=== PATIENT | male | born 1950 | race Asian ===

== ENCOUNTER → 2022-10-23 | Outpatient (CLI) | payer MEDICARE, OTHER ==
[~2022-10-23] VITALS: Ht 177.8 cm; Wt 98.8 kg
[2022-10-23 13:50] VITALS: BP 120/61
== END | disposition home or self-care (01) ==
LOC: SRCNTR 11:48
PROVIDERS: ATTEND Internal Medicine Pulmonary Disease
DX: G47.33 Obstructive sleep apnea (adult) (pediatric) (principal); R06.00 Dyspnea, unspecified; I10 Essential (primary) hypertension; E11.9 Type 2 diabetes mellitus without complications; I48.91 Unspecified atrial fibrillation; M54.50 Low back pain, unspecified; J45.901 Unspecified asthma with (acute) exacerbation
CPT/HCPCS: G0463

== ENCOUNTER → 2023-01-20 | Outpatient (CLI) | payer MEDICARE, OTHER ==
[~2023-01-20] VITALS: Ht 177.8 cm; Wt 90.5 kg
[2023-01-20 12:07] VITALS: BP 139/83; PULSE 77; RESP 18; TEMP 98.8; O2SAT 97
== END | disposition home or self-care (01) ==
LOC: SRCNTR 11:50
PROVIDERS: ATTEND Internal Medicine Pulmonary Disease
DX: G47.33 Obstructive sleep apnea (adult) (pediatric) (principal); J45.901 Unspecified asthma with (acute) exacerbation; E11.9 Type 2 diabetes mellitus without complications; I10 Essential (primary) hypertension; I48.91 Unspecified atrial fibrillation; M54.50 Low back pain, unspecified; G89.29 Other chronic pain
CPT/HCPCS: G0463; Z7500